=== PATIENT | male | born 1960 | race Caucasian/White ===

== ENCOUNTER 2018-03-24 08:39 | Outpatient (CLI) | payer OTHER ==
--- NOTE | 2018-03-24 15:00 | PET ---
PET SCAN WITH CT ATTENUATION CORRECTION: HISTORY: Squamous cell carcinoma of the tongue. COMPARISON: None. TECHNIQUE: PET scanning with CT attenuation correction is performed from near the skull vertex to the proximal t highs following the intravenous administration of 10.9 mCi F18-FDG. FINDINGS: HEAD/NECK: There is abnormal FDG localization at the right tongue base with a maximum SUV of 9.2. There is abnor mal FDG localization involving an enlarged and partially necrotic right Level II lymph node with a ma ximum SUV of 15.8. CHEST: No abnormal FDG localization. CT used for attenuation correction demonstrates minimal dependent atele ctatic change. ABDOMEN/PELVIS: No abnormal FDG localization. OSSEOUS STRUCTURES: No abnormal FDG localization. IMPRESSION: FDG avidity involving the right tongue base with an associated necrotic hypermetabolic right Level II lymph node. POS: ANT
== END 2018-03-24 08:40 | disposition home or self-care (01) ==
LOC: PET 08:39
PROVIDERS: ATTEND Radiology Radiation Oncology
DX: C01 Malignant neoplasm of base of tongue (principal)
CPT/HCPCS: 78815; A9552

== ENCOUNTER 2018-04-20 07:25 | Day surgery (SDC) | payer OTHER ==
[2018-04-19 14:23] VITALS: BMI 32.3
[2018-04-20] MEDS ORDERED: Bupivacaine/Epinephrine 0.25% 30 ML VIAL ONE (07:54)
[2018-04-20] MEDS ORDERED: Lidocaine 2% 11 ML SYR ONE (07:54)
[2018-04-20] MEDS ORDERED: Lidocaine 2% PF 5 ML VIAL ONE (07:55)
[2018-04-20] MEDS ORDERED: Fentanyl 100 MCG/2 ML VIAL ONE (09:53)
--- NOTE | 2018-04-20 12:53 | RAD ---
PORTABLE CHEST: 04/20/2018 PROVIDED CLINICAL HISTORY: Status post Mediport placement. FINDINGS: The cardiac and mediastinal silhouette is within normal limits. The lungs appear clear. No pleural fluid or pneumothorax apparent. A left IJ implanted port is noted, the tip of which projects over th e expected location of the right atrium. IMPRESSION: Status post implanted port placement without evidence for complications. POS: BENNY
[2018-04-20] MEDS ORDERED: PROPOFOL 200 MG/20 ML VIAL ONE (13:15)
--- NOTE | 2018-04-20 20:47 | OP ---
DATE OF PROCEDURE: 04/20/2018 PREOPERATIVE DIAGNOSIS: Squamous cell carcinoma of head and neck. POSTOPERATIVE DIAGNOSIS: Squamous cell carcinoma of head and neck. PROCEDURE PERFORMED: Tunneled central line subcutaneous port (MediPort CT injectable). ANESTHESIA: TIVA, local. ESTIMATED BLOOD LOSS: Minimal. COMPLICATIONS: None. SPECIMEN: None. FINDINGS: Tip of the catheter at atriocaval junction. DESCRIPTION OF PROCEDURE: The patient was taken to the operating room and laid supine on the operating room table. After sedation was obtained, bilateral neck and chest were shaved, prepped, and draped in a sterile fashion. Local anesthetic was infiltrated over the left internal jugular vein. Internal jugular vein was cannulated using a 22-gauge finder needle followed by a Seldinger needle. Wire was passed into superior vena cava under fluoro guidance. A small papito was made at the wire entrance site. A separate 3 cm incision was made in the left upper chest. Subcutaneous pocket was made below the lower incision. Tubing for the MediPort tunneled from the inferior to the superior incision and suture sheath was placed over the wire into the superior vena cava under fluoro guidance. The dilator and wire were removed. The end of the catheter sewed into the sheath. The sheath was peeled away. The tip of the catheter was at the atriocaval junction. MediPort tube was cut to fit the MediPort at the lower incision. It was connected to the MediPort and the MediPort sewn to the chest wall in the subcutaneous pocket using Prolene. The MediPort flushes and draws blood without difficulty, it was flushed with a hep flush. The wounds were irrigated and closed using 3-0 Vicryl, 4-0 Monocryl, and Dermabond. The patient was sent to Recovery in stable condition. All instrument counts, needle counts, and lap counts were correct. Job ID: [id number]
--- NOTE | 2018-04-21 20:56 | EKG ---
Test Reason : PREOP Blood Pressure : / mmHG Vent. Rate : 073 BPM Atrial Rate : 073 BPM P-R Int : 164 ms QRS Dur : 090 ms QT Int : 356 ms P-R-T Axes : 043 -21 010 degrees QTc Int : 392 ms Normal sinus rhythm Normal ECG Confirmed by Leroy COLBY ([id number]) on 04/21/2018 8:56:02 PM Referred By: CARROL Confirmed By:Leroy COLBY
== END 2018-04-20 11:55 | disposition home or self-care (01) ==
LOC: SDC 07:25
PROVIDERS: ATTEND Surgery
PROC: 0JH63WZ Insertion of Totally Implantable Vascular Access Device into Chest Subcutaneous Tissue and Fascia, Percutaneous Approach (ICD-10-PCS; principal; 2018-04-20)
DX: C76.0 Malignant neoplasm of head, face and neck (principal); I48.91 Unspecified atrial fibrillation; F17.220 Nicotine dependence, chewing tobacco, uncomplicated; E66.9 Obesity, unspecified; Z68.32 Body mass index [BMI] 32.0-32.9, adult; Z79.899 Other long term (current) drug therapy; Z88.8 Allergy status to other drugs, medicaments and biological substances
CPT/HCPCS: 71045; 93005; 93010; C1788; J1642; J2001; J2704; J3010

== ENCOUNTER 2018-05-26 11:16 | Observation (INO) | payer OTHER ==
[2018-05-26] MEDS ORDERED: Fentanyl 100 MCG/2 ML VIAL ONE ×3 (13:02→14:49)
[2018-05-26] MEDS ORDERED: Ketamine 50 MG/ML (10ML VIAL) ONE (14:01)
[2018-05-26] MEDS ORDERED: Ondansetron HCl/PF 4 MG/2 ML Vial IVP PRN (14:34)
[2018-05-26] MEDS ORDERED: Promethazine HCl 25 MG/ML VIAL SLOW IVP PRN (14:34)
[2018-05-26] MEDS ORDERED: Promethazine HCl 25 MG/ML VIAL IM PRN (14:34)
[2018-05-26] MEDS ORDERED: Ondansetron PF 4 MG/2 ML Vial ONE (15:41)
[2018-05-26] MEDS ORDERED: PROPOFOL 200 MG/20 ML VIAL ONE (15:41)
[2018-05-26] MEDS ORDERED: Lidocaine 1% PF 5 ML VIAL ONE (15:41)
[2018-05-26] MEDS ORDERED: Morphine 2 MG/ML SYRINGE SLOW IVP PRN (16:40)
[2018-05-26] MEDS ORDERED: Ondansetron PF 4 MG/2 ML Vial SLOW IVP PRN (16:41)
[2018-05-26] MEDS: Dextrose 5 % And 0.9 % NaCl 1,000 ML IV SCH (16:44)
--- NOTE | 2018-05-26 16:50 | OP ---
DATE OF PROCEDURE: 05/26/2018 PROCEDURE PERFORMED: Esophagogastroduodenoscopy with PEG tube placement. PREPROCEDURE DIAGNOSES: 1. Tongue cancer on radiation and chemotherapy. 2. Inability to swallow or eat food. He has been having to get IV fluids at the Oncology office for couple of weeks now. His radiation oncologist asked me to see him for the feeding tube placement. POSTOPERATIVE DIAGNOSES: PEG tube placement, Ponsky pull technique, mild edema of the arytenoid cartilage and friability of the pharynx. ANESTHESIA: TIVA, Ancef 2 g were given after the procedure. He was actually on Levaquin orally prior to the procedure and did take some today. RECOMMENDATIONS: We will place for 23-hour observation for pain control and PEG tube in dietary teaching. PROCEDURE IN DETAIL: The patient was informed of the risks, benefits, and possible complications of endoscopy including perforation, reaction to medication, and aspiration, informed consent was obtained. The patient was brought to the endoscopy suite, where he was sedated in gradual fashion. Once he was comfortable, a bite block was placed inside his orifice. The endoscope was advanced to the esophagus, stomach, and second and third portion of the duodenum and slowly removed. There was good visualization of the mucosa. Adequate place for PEG tube was identified by finger indentation and transillumination. Due to the patient's problems with throat inflammation with radiation and a pretty large man, it was difficult to keep him sedated adequately for procedure but still yet breathing on his own without any airway collapse or sleep apnea. Ultimately, we were able to get the PEG tube placed. When the scope was advanced to the esophagus, stomach, and duodenum, the place for PEG tube site was identified initially. We prepped and draped the abdomen in sterile fashion and then went ahead to place the PEG, but the patient coughed, we lost the needle in the stomach. Therefore, to pull the apparatus out, we start over to re-prep the abdomen and replaced the PEG tube. At that time, we were successful and again, before it was placed, a translumination and finger indentation were performed. The scope was removed. The patient tolerated the procedure well, brought to the recovery room in stable condition. Job ID: [id number]
[2018-05-26] MEDS: Gabapentin 300 MG CAP PO SCH ×2 (16:51→21:18)
[2018-05-26] MEDS ORDERED: Morphine 4 MG/ML VIAL SLOW IVP PRN (17:15)
[2018-05-26] MEDS: Morphine 4 MG/ML VIAL SLOW IVP PRN ×3 (17:45→22:17)
[2018-05-26 17:49] VITALS: BMI 28.8
[2018-05-27] MEDS: Morphine 4 MG/ML VIAL SLOW IVP PRN ×5 (00:42→11:43)
[2018-05-27] MEDS: Dextrose 5 % And 0.9 % NaCl 1,000 ML IV SCH (05:29)
[2018-05-27] MEDS ORDERED: PATIENT'S HOME MEDICATION PER TUBE SCH (06:00)
[2018-05-27] MEDS: Gabapentin 300 MG CAP PO SCH ×2 (08:34→14:43)
[2018-05-27 12:10] VITALS: TEMP 98.5
[2018-05-27] MEDS ORDERED: HYDROcodone/Acetaminophen 5/325 mg Tablet PO PRN ×2 (12:38)
[2018-05-27 15:31] VITALS: BP 126/80
== END 2018-05-27 16:50 | disposition home or self-care (01) ==
LOC: SDC 11:16 → 2SW 15:45
PROVIDERS: ADMIT Internal Medicine Gastroenterology; ATTEND Internal Medicine Gastroenterology
PROC: 0DH63UZ Insertion of Feeding Device into Stomach, Percutaneous Approach (ICD-10-PCS; principal; 2018-05-26)
DX: C02.9 Malignant neoplasm of tongue, unspecified (principal); I48.91 Unspecified atrial fibrillation; Z92.21 Personal history of antineoplastic chemotherapy; Z92.3 Personal history of irradiation; Z87.891 Personal history of nicotine dependence; Z88.8 Allergy status to other drugs, medicaments and biological substances; Z96.659 Presence of unspecified artificial knee joint; Z98.890 Other specified postprocedural states; Z79.899 Other long term (current) drug therapy
CPT/HCPCS: 96361; 96374; 96376; G0378; J1642; J2001; J2270; J2405; J2704; J3010

== ENCOUNTER 2018-08-17 09:35 | Outpatient (CLI) | payer OTHER ==
--- NOTE | 2018-08-17 11:26 | PET ---
EXAM: PET CT skull to mid thigh COMPARISON: PET CT 03/24/2018 HISTORY: Base of tongue cancer status post chemotherapy and radiation therapy TECHNIQUE: A PET/CT was performed from the skull to the mid thigh after administration of 14 millicur ies of F-18 FDG. Evaluation was performed on a [employer] workstation. FINDINGS: INTRACRANIAL: No hot or cold areas of metabolic activity are seen in the brain. NECK: Persistent hypermetabolic activity is seen diffusely throughout the tongue with a maximum SUV v alue of 4.3. There is significant improvement in the enlarged right level 2 lymph node. A small amount of persistent hypermetabolic activity is seen in this region with a maximum SUV value of 4.7. CHEST: No areas of hypermetabolic activity ABDOMEN/PELVIS: There are 2 small nodules in the upper abdominal anterior mesentery. These each measu re approximately 1.2 cm in size. These nodules are hypermetabolic with the most hypermetabolic nodule having a maximum SUV value of 6.9. SKELETON: No areas of hypermetabolic activity CT images used for attenuation correction show a Mediport with its tip in the superior vena cava. The re is a peg tube with its balloon in the stomach. A small amount of hypermetabolic activity is seen around the skin and soft tissues leading down to the stomach and surrounding the PEG tube which is li mary from recent surgery. IMPRESSION: 1. Improvement in hypermetabolic activity in the right level 2 cervical lymph node 2. Persistent hypermetabolic activity in the tongue suggests residual disease 3. Nonspecific hypermetabolic activity within 2 abdominal mesenteric nodules.
== END 2018-08-17 09:36 | disposition home or self-care (01) ==
LOC: PET 09:35
PROVIDERS: ATTEND Radiology Radiation Oncology
DX: C01 Malignant neoplasm of base of tongue (principal); R19.00 Intra-abdominal and pelvic swelling, mass and lump, unspecified site
CPT/HCPCS: 78815; A9552

== ENCOUNTER 2018-11-24 07:56 | Outpatient (CLI) | payer OTHER ==
--- NOTE | 2018-11-24 10:14 | PET ---
PET CT SKULL TO MID THIGH: HISTORY: A 58-year-old male with squamous cell carcinoma of the right base of tongue. Last chemo/radiation th erapy in May 2018. Exam is requested for restaging. COMPARISON: PET CT from 08/17/2018. TECHNIQUE: PET scanning with CT attenuation correction was performed from the vertex through the proximal thighs following the intravenous administration of 11.5 millicuries of F18 fluorodeoxyglucose into the righ t antecubital fossa. FINDINGS: There is residual uptake in the right base of tongue with an SUV of 5. No hypermetabolic cervical, m ediastinal, hilar, or axillary lymph nodes are seen. No hypermetabolic pulmonary nodules in the liver or adrenal or skeletal lesions identified. Two hypermetabolic mesenteric lymph nodes are again seen with a maximum SUV of 6.6 (previously 6.9). No new lesions are identified. The CT scan used for attenuation correction demonstrates no evidence of pleural effusions or ascites. IMPRESSION: Significant interval improvement since 08/17/2018. POS: ANT
== END 2018-11-24 07:57 | disposition home or self-care (01) ==
LOC: PET 07:56
PROVIDERS: ATTEND Radiology Radiation Oncology
DX: C01 Malignant neoplasm of base of tongue (principal)
CPT/HCPCS: 78815; A9552

== ENCOUNTER 2019-12-06 08:59 | Outpatient (CLI) | payer OTHER ==
--- NOTE | 2019-12-06 11:19 | PET ---
Radionucleotide PET scan with CT attenuation correction HISTORY: Malignant neoplasia base of tongue. Restaging. COMPARISON: 04/26/2019. FINDINGS: Physiologic uptake of radiotracer throughout the enteric system and along each urinary trac t. No abnormal uptake is evident about the tongue or neck. No abnormal uptake at the mesentery, where very subtle hazy stranding is likely related to prior treatment. No new areas of abnormal uptake are evident. Nondiagnostic CT attenuation correction images show calcification within the lower abdominal aorta an d common iliac arteries. IMPRESSION : No evidence of recurrent neoplasm.
== END 2019-12-06 09:00 | disposition home or self-care (01) ==
LOC: PET 08:59
PROVIDERS: ATTEND Radiology Radiation Oncology
DX: C01 Malignant neoplasm of base of tongue (principal)
CPT/HCPCS: 78815; A9552

== ENCOUNTER 2023-05-06 11:25 | Outpatient (CLI) | payer OTHER ==
[2023-05-06 12:25] LABS: #Eosinphils 0.1 10x3/uL (0.0-0.5); #Monocytes 0.5 10x3/uL (0.0-1.1); %Basophils 0.4 % (0.0-2.0); %Eosinophils 1.5 % (0.0-6.0); %Lymphocytes 22.9 % (18.0-47.0); Hematocrit 38.1 % (38.8-50.0); Hemoglobin 13.2 g/dL (13.5-17.5); Mean Corpuscular HGB CONC 34.6 g/dL (32.0-36.0); Mean Corpuscular Hemoglobin 32.1 pg (27.0-33.0); Mean Corpuscular Volume 92.7 fl (81.2-95.1); Mean Platelet Volume 9.7 fl (7.4-10.4); Platelet Count 208 10x3/uL (150-450); RBC Distribution Width 12.1 % (11.5-14.5); Red Blood Cell (RBC) Count 4.11 10x6/uL (4.32-5.72); White Blood Cell (WBC) Count 4.7 10x3/uL (3.5-10.5)
== END 2023-05-06 11:26 | disposition home or self-care (01) ==
LOC: LABBT 11:25
PROVIDERS: ATTEND Orthopaedic Surgery Hand Surgery
DX: Z01.818 Encounter for other preprocedural examination (principal); M65.341 Trigger finger, right ring finger; M65.322 Trigger finger, left index finger; M65.332 Trigger finger, left middle finger
CPT/HCPCS: 85025; 93005; 93010

== ENCOUNTER 2024-11-20 05:58 | Day surgery (SDC) | payer MEDICARE ==
[2024-11-19 10:06] VITALS: BMI 34.0
[2024-11-20] MEDS ORDERED: PROPOFOL 20 ML ONE ×2 (08:26→08:55)
[2024-11-20] MEDS ORDERED: Lidocaine 1% PF 5 ML VIAL ONE (08:45)
== END 2024-11-20 10:18 | disposition home or self-care (01) ==
LOC: SDC 05:58
PROVIDERS: ATTEND Internal Medicine Gastroenterology
PROC: 0D758ZZ Dilation of Esophagus, Via Natural or Artificial Opening Endoscopic (ICD-10-PCS; principal; 2024-11-20)
PROC: 0DJD8ZZ Inspection of Lower Intestinal Tract, Via Natural or Artificial Opening Endoscopic (ICD-10-PCS; principal; 2024-11-20)
DX: K57.30 Diverticulosis of large intestine without perforation or abscess without bleeding (principal); K21.9 Gastro-esophageal reflux disease without esophagitis; G47.00 Insomnia, unspecified; Z96.1 Presence of intraocular lens; Z96.651 Presence of right artificial knee joint; Z98.41 Cataract extraction status, right eye; Z98.42 Cataract extraction status, left eye; Z88.8 Allergy status to other drugs, medicaments and biological substances; Z88.5 Allergy status to narcotic agent; Z79.899 Other long term (current) drug therapy
CPT/HCPCS: 45378; 43248; J2704